=== PATIENT | female | born 1950 | race Caucasian/White ===

== ENCOUNTER 2018-05-08 18:22 | Emergency (ER) | payer MEDICARE, BC, SELFPAY ==
[2018-05-08 18:40] VITALS: BP 119/46; PULSE 96; RESP 18; TEMP 36.9; O2SAT 99
--- NOTE | 2018-05-08 18:54 | DI.CT_ITS ---
SYMPTOMS/DIAGNOSIS: FALL, STRUCK BACK OF HEAD CRANIAL CT: Noncontrast cranial CT was performed. There is mild generalized cerebral atrophy. There is no evidence of acute intracranial hemorrhage, mass effect or midline shift. The orbital and temporal bone structures appear intact. Visualized paranasal sinuses are clear. CONCLUSION: No evidence of acute intracranial process.
--- NOTE | 2018-05-08 18:54 | DI.RAD_ITS ---
SYMPTOMS/DIAGNOSIS: FALL ONTO OUTSTRETCHED HAND LEFT HIP AND PELVIS: Three views were obtained. There is a total hip joint replacement in position on the left. The components appear well seated. No acute fracture is seen. RIGHT WRIST: Three views were obtained. Carpal alignment appears within normal limits. No fracture identified. Mild degenerative changes noted.
--- NOTE | 2018-05-08 19:08 | W.ED.GENAD ---
Discharge Plan Disposition Patient Disposition: HOME Condition: Fair Discharge Details Chief Complaint: Trauma Clinical Impression: Contusion of right wrist, Closed fracture of right distal radius, Contusion of hip, left, Head injury Reason For Visit: right arm, left hip pain Primary Care Provider: Henna Young ED Provider: Natasha Worthy Home Meds and New Rx's Prescriptions: Continued venlafaxine 50 mg tablet 50 mg PO DAILY Qty: 30 RF: 1 zolpidem [Ambien] 5 mg tablet 5 mg PO daily prn Qty: 90 RF: 3 estradiol [Estrace] 42.5 GM cream 1 g VG DAILY RF: 0 cholecalciferol (vitamin D3) 1,000 UNIT tablet 1,000 unit PO DAILY RF: 0 vitamin B complex 1 EACH capsule 1 ea PO DAILY RF: 0 valacyclovir 500 MG tablet 500 mg PO DAILY RF: 0 calcium carbonate-vitamin D3 1 EACH tablet 1 ea PO DAILY RF: 0 mometasone 45 GM cream 45 gm Topical PRN RF: 0 pantoprazole [Protonix] 20 MG tablet,delayed release (DR/EC) 20 mg PO DAILY Qty: 90 RF: 0 raloxifene [Evista] 60 mg tablet 60 mg PO DAILY Qty: 90 RF: 3 citalopram 20 mg tablet 20 mg PO DAILY Qty: 90 RF: 3 Discharge Instructions Instructions: Wrist Fracture in Adults (ED), Head Injury (ED), Contusion in Adults (ED) Additional Instructions: Concern for possible distal radial fracture. Keep splint on until evaluated by orthopedics. Encourage rest, ice, elevation. Tylenol as needed for discomfort. Please call orthopedics Tuesday to schedule follow-up appointment, numbers listed below. Regard to the left hip, gentle stretching and frequent ambulation. Heat or ice to this affected area If you develop increased pain, fevers or chills, confusion, visual change, nausea/vomiting or other new/worsening symptoms please seek care urgently once again. Referrals: Henna Young NP [Primary Care Provider] - Caden Martinez MD [ [facility] STAFF PHYSICIAN] - ([phone]) Discharge Data Discharge Date/Time-TO BE ENTERED AT DEPARTURE: 05/08/18 21:59 Medical Decision Making Patient is a 67 year old RHD female, accompanied by son, with c/c of right wrist pain, left hip pain. States that she slipped on the ice and fell backward, first striking her head. Denies LOC. Denies LUX currently. No visual changes. No N/V. No confusion. Patient is not anticoagulated. No neck or back pain. Pain is primarily over the radial side of the right wrist and posterior aspect of the left hip. Patient is s/p left CASS. She has swelling to dorsal side of right wrist, limited ROM. Minimal pain over posterior left hip. No pelvic instability, no shortening or rotational deformity. Full ROM. Remaining exam without abnormality. Will obtain XR of right wrist, left hip. Will obtain CT of head given patients age and mechanism. Imaging reviewed by radiologist: Head CT FINDINGS: Brain: No intracranial hemorrhage. No mass or midline shift. No extra-axial collections. Normal funk-white differentiation. No cerebral edema. Ventricles: Asymmetry of the lateral ventricles, RIGHT slightly larger than the LEFT region of the frontal horn likely due to normal variation. No hydrocephalus. Bones/joints: No acute fracture. Sinuses: The visualized paranasal sinuses are well-aerated. There are no air fluid levels to suggest acute sinusitis. Mastoid air cells: The mastoid air cells are normally aerated as visualized. Orbits: Orbits unremarkable as visualized. Soft tissues: Soft tissues unremarkable. Impression: No acute intracranial findings. XR wrist: FINDINGS: Bones/joints: On the AP and oblique views there is no evidence of fracture. On the lateral view there is a questionable focal defect/step-off in the posterior cortex of the distal radial metaphysis. Probably is within normal limits. The possibility of a nondisplaced fracture is not excluded. There is no significant overlying soft tissue swelling. There is degenerative change involving the first carpometacarpal joint. Degenerative change of the first carpometacarpal joint. Soft tissues: See Bones/joints Finding. IMPRESSION:Focal defect/step-off in the posterior cortex distal radial metaphysis on the lateral view without evidence of fracture on other views or overlying soft tissue swelling. An acute fracture is not excluded but unlikely. Please correlate with the site of the patient's pain. If clinically indicated a CT scan of the wrist could be performed. This does correlate clinically with area of discomfort. At this point, will treat with brace, especially given the patients level of discomfort, and will have her f/u with orthopedics for reevaluation. She will call Tuesday to schedule follow up appointmnet. FINDINGS: Bones/joints: Status post LEFT interval total hip arthroplasty. No hardware complication. No acute fracture. Degenerative changes of the lumbar spine. Soft tissues: Soft tissues unremarkable. Gastrointestinal tract: Fecal material throughout the colon. No bowel obstruction. IMPRESSION: 1. Status post interval LEFT total hip arthroplasty. 2. No acute fracture. 3. No hardware complication. Discussed findings above. Will treat with brace as above and have her f/u with orthopedics. Encouraged rest, ice, elevation. Tylenol as needed for discomfort. Advised on new/worsening symptoms and when to seek care urgently once again. She will f/u with orthopedics as above, placed on fx list. All of her questions and concerns were addressed, she is in agreement wiht this plan. HPI General Mode of arrival: ambulatory. Date/Time Provider Initiated Documentation: 05/08/18 18:42. Limitations to Documentation: no limitations. Information obtained by: patient and family. History of Present Illness 67 year old F presents to the emergency department with the chief complaint of right wrist, left hip pain, described as moderate, Quality is described as aching, and is localized to the head, left, right, upper extremity and lower extremity. Patient reports no radiation. Patient started experiencing this minute(s) and it has been constant. Immobilization improves symptom(s), Movement worsens symptoms . Patient notes headaches; denies chest pain, cough, diaphoresis, fever/chills, nausea/vomiting, rash, seizure, shortness of breath, syncope and weakness. Patient did receive the following treatments prior to arrival, none Related Data Home Medications Medication Instructions Recorded Confirmed cholecalciferol (vitamin D3) 1,000 unit PO DAILY 12/12/12 05/08/18 estradiol [Estrace] 1 g VG DAILY 12/12/12 05/08/18 vitamin B complex 1 ea PO DAILY 05/15/14 05/08/18 valacyclovir 500 mg PO DAILY tab-cap 03/26/15 02/12/18 calcium carbonate-vitamin D3 1 ea PO DAILY 04/12/16 05/08/18 mometasone 45 gm TOPICAL PRN script 09/27/16 05/08/18 pantoprazole [Protonix] 20 mg PO DAILY #90 tab-cap 10/05/17 05/08/18 venlafaxine 50 mg tablet 50 mg PO DAILY #30 tab 02/06/18 05/08/18 zolpidem 5 mg tablet 5 mg PO daily prn #90 tab 02/06/18 05/08/18 raloxifene 60 mg tablet 60 mg PO DAILY #90 tab-cap 03/08/18 05/08/18 citalopram 20 mg PO DAILY #90 tab-cap 04/03/18 05/08/18 Previous Rx's Medication Instructions Recorded pantoprazole [Protonix] 20 mg PO DAILY #90 tab-cap 10/05/17 venlafaxine 50 mg tablet 50 mg PO DAILY #30 tab 02/06/18 zolpidem 5 mg tablet 5 mg PO daily prn #90 tab 02/06/18 raloxifene 60 mg tablet 60 mg PO DAILY #90 tab-cap 03/08/18 citalopram 20 mg PO DAILY #90 tab-cap 04/03/18 Allergies Allergy/AdvReac Type Severity Reaction Status Date / Time morphine Allergy Severe HIVES, Unverified 05/08/18 19:22 ITCHY RASH red dye Allergy Severe Anaphylaxsi Unverified 05/08/18 19:22 s latex Allergy Intermediate ITCHING Unverified 05/08/18 19:22 metaxalone Allergy Intermediate RASH ALL Unverified 05/08/18 19:22 OVER BODY duloxetine Allergy Mild Unverified 05/08/18 19:22 ciprofloxacin Allergy Unknown Unverified 05/08/18 19:22 clarithromycin Allergy Unknown Unverified 05/08/18 19:22 diphenhydramine Allergy Unknown Unverified 05/08/18 19:22 Penicillins Allergy Unknown Unverified 05/08/18 19:22 Sulfa (Sulfonamide Allergy Unknown Unverified 05/08/18 19:22 Antibiotics) cephalexin Allergy ITCHING Unverified 05/08/18 19:22 hydrocodone AdvReac Severe Unverified 05/08/18 19:22 erythromycin base AdvReac Intermediate NAUSEA/VOMI Unverified 05/08/18 19:22 TING Quinolones AdvReac Intermediate FLU LIKE Unverified 05/08/18 19:22 SYMPTOMS trazodone AdvReac Intermediate FACIAL Unverified 05/08/18 19:22 FLUSHING ibuprofen AdvReac Unknown Unverified 05/08/18 19:22 oxycodone AdvReac Unknown Unverified 05/08/18 19:22 General Stated Complaint: Trauma EVARISTO: 3 Review of Systems Constitutional Reports as per HPI, Denies chills, Denies fever(s), Denies headache(s) and Denies weakness ENT Denies headache(s) and Denies neck pain Cardiovascular Reports as per HPI Respiratory Reports as per HPI and Denies cough Gastrointestinal Denies abdominal pain, Denies change in bowel habits, Denies nausea and Denies vomiting Musculoskeletal Reports as per HPI, Denies neck pain, Denies numbness, Denies radiating pain into limb and Denies tingling Integumentary/Breasts Reports as per HPI, Denies rash and Denies wounds Neurologic Denies headache(s), Denies numbness, Denies tingling and Denies weakness [facility] Medical History History of malignant neoplasm of female breast Neuropathy Tubular adenoma of colon Surgical History BREAST RECONSTRUCTION (~2009) Breast, Mastectomy Bilateral (~2005) CERVICAL FUSION IMPLANTS Oophrectomy, Both (~2006) Rotator Cuff Repair Family History Mother Depression Mental disorder Neoplasm Father Stroke Sister Neoplasm Brother No problems noted. Grandfather No problems noted. Grandfather No problems noted. Grandmother Diabetes Grandmother No problems noted. 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 pets and animals: No Smoking/Tobacco Use Status: Never alcohol intake: never substance use type: marijuana jagdeep/congregational: Bahai Exam Const General: cooperative, healthy appearing, comfortable, no acute distress, well developed and well groomed Nutritional Appearance: average body habitus and well nourished Orientation: alert and awake [facility] Head: normal to inspection, no palpable skull fracture, normocephalic, atraumatic, no abrasions, no Bruno's sign, no contusions, no hematomas and no lacerations Ears: hearing grossly normal bilaterally and external ears normal General nose exam: external nose normal Face and sinus: normal facial exam and face symmetric Mouth: oral mucosae normal Neck Neck: normal visual inspection, full ROM, no lymphadenopathy, no meningeal signs, trachea midline and supple Chest Chest: normal inspection of the chest Resp Effort & Inspection: normal respiratory effort, able to speak in complete sentences and no respiratory distress Auscultation: clear to auscultation bilaterally Cardio Rate: regular rate Rhythm: regular rhythm Heart Sounds: S1 normal and S2 normal GI Inspection: normal to inspection Palpation: soft, no hepatosplenomegaly, not firm, no guarding and nontender Auscultation: normal bowel sounds Back/Spine/Pelvis Back: no CVA tenderness Cervical Spine: normal cervical lordosis and cervical ROM normal Thoracic/Lumbar Spine: thoracic and lumbar spine normal to inspection, No paraspinal tenderness, No thoracic spinal tenderness and No lumbar spinal tenderness Pelvis: no pain with anterior-posterior compression and no pain with lateral compression Skin General skin exam: no rashes or lesions noted Lesions: no lesions Rashes: no rashes Trauma: no lacerations or abrasions Neuro General: alert and awake Cognition: normal cognition Speech: speech normal Gait: normal gait Motor: muscle tone normal throughout Sensory Exam: no sensory deficits noted Extrem Right upper extremity: normal capillary refill, no joint enlargement, elbow/forearm Details: normal to inspection and normal ROM; no tenderness and no swelling and wrist (pain along radial side, dorsal swelling noted) Details: tenderness Location: of the distal radius, swelling Location: of the dorsal wrist and normal ROM; inspection abnormal, no unusual warmth, no abrasions, no lacerations, no ecchymosis, no crepitus and no deformity; abnormal to inspection, ROM limited (limited ROM of right wrist) and no edema Left lower extremity: full ROM, normal capillary refill, no joint enlargement and hip/thigh (2+ distal pulses) Details: normal to inspection, tenderness (well healed incision) Location: of the hip Location: posteriorly and normal ROM; inspection normal, no swelling, no abrasions, no lacerations, no ecchymosis, no crepitus, no deformity and no unusual warmth; no cyanosis and no edema Psych Appearance: grossly normal and well kempt Mental Status: mental status grossly normal Speech and Movement: speech and movement normal Course Vital Signs Temperature 36.9 C 05/08/18 18:40 Pulse 96 H 05/08/18 18:40 Respiratory Rate 18 05/08/18 18:40 Blood Pressure 119/46 L 05/08/18 18:40 Pulse Oximetry 99 05/08/18 18:40 Temperature 36.9 C 05/08/18 18:40 Temperature Source Temporal Artery Scan 05/08/18 18:40 Pulse 96 H 05/08/18 18:40 Respiratory Rate 18 05/08/18 18:40 Blood Pressure 119/46 L 05/08/18 18:40 Pulse Oximetry 99 05/08/18 18:40 Oxygen Delivery Method Room Air 05/08/18 18:40 Oxygen Flow Rate 0 05/08/18 18:40
[2018-05-08] MEDS: Acetaminophen 325 MG TAB (19:21)
--- NOTE | 2018-05-08 20:40 | DI.VRAD_ITS ---
EXAM: CT Head Without Contrast EXAM DATE/TIME: 05/08/2018 6:56 PM CLINICAL HISTORY: 67 years old, female; Pain; Other: Fall, hit head TECHNIQUE: Axial computed tomography images of the head/brain without contrast. All CT scans at this facility use at least one of these dose optimization techniques: automated exposure control; mA and/or kV adjustment per patient size (includes targeted exams where dose is matched to clinical indication); or iterative reconstruction. Coronal and sagittal reformatted images were created and reviewed. COMPARISON: No relevant prior studies available. FINDINGS: Brain: No intracranial hemorrhage. No mass or midline shift. No extra-axial collections. Normal funk-white differentiation. No cerebral edema. Ventricles: Asymmetry of the lateral ventricles, RIGHT slightly larger than the LEFT region of the frontal horn likely due to normal variation. No hydrocephalus. Bones/joints: No acute fracture. Sinuses: The visualized paranasal sinuses are well-aerated. There are no air fluid levels to suggest acute sinusitis. Mastoid air cells: The mastoid air cells are normally aerated as visualized. Orbits: Orbits unremarkable as visualized. Soft tissues: Soft tissues unremarkable. IMPRESSION: No acute intracranial findings. Dictated and Authenticated by: Charlotte Artis MD. Ordering:DEMIAN Kaur MD
--- NOTE | 2018-05-08 20:55 | DI.VRAD_ITS ---
EXAM: XR Left Hip with Pelvis when Performed, 2 or 3 Views EXAM DATE/TIME: 05/08/2018 6:56 PM CLINICAL HISTORY: 67 years old, female; Pain; Hip pain; Left hip; Patient HX: Pain after fall on ice TECHNIQUE: XR Left hip with pelvis when performed, 2 or 3 views COMPARISON: CR PELVIS AP 11/29/2011 9:00 AM FINDINGS: Bones/joints: Status post LEFT interval total hip arthroplasty. No hardware complication. No acute fracture. Degenerative changes of the lumbar spine. Soft tissues: Soft tissues unremarkable. Gastrointestinal tract: Fecal material throughout the colon. No bowel obstruction. IMPRESSION: 1. Status post interval LEFT total hip arthroplasty. 2. No acute fracture. 3. No hardware complication. Dictated and Authenticated by: Charlotte Artis MD. Ordering:DEIMAN Kaur MD
--- NOTE | 2018-05-08 21:12 | DI.VRAD_ITS ---
Addendum created by Charlotte Artis MD on 05/08/2018 9:16:12 PM EST Findings were discussed by me with SLIME ARECHIGA at 05/08/2018 9:16 PM EST. The findings were acknowledged and understood. Initial report created on 05/08/2018 9:12:17 PM EST EXAM: XR Right Wrist Complete, 3 or more Views EXAM DATE/TIME: 05/08/2018 6:56 PM CLINICAL HISTORY: 67 years old, female; Pain; Wrist; Right; Patient HX: Foosh TECHNIQUE: XR Right wrist 3 or more views. COMPARISON: CR RIGHT HAND COMPLETE 05/20/2017 10:31 AM FINDINGS: Bones/joints: On the AP and oblique views there is no evidence of fracture. On the lateral view there is a questionable focal defect/step-off in the posterior cortex of the distal radial metaphysis. Probably is within normal limits. The possibility of a nondisplaced fracture is not excluded. There is no significant overlying soft tissue swelling. There is degenerative change involving the first carpometacarpal joint. Degenerative change of the first carpometacarpal joint. Soft tissues: See Bones/joints Finding. IMPRESSION: Focal defect/step-off in the posterior cortex distal radial metaphysis on the lateral view without evidence of fracture on other views or overlying soft tissue swelling. An acute fracture is not excluded but unlikely. Please correlate with the site of the patient's pain. If clinically indicated a CT scan of the wrist could be performed. Dictated and Authenticated by: Charlotte Artis MD. Ordering:DEMIAN Kaur MD
== END 2018-05-08 21:59 | disposition home or self-care (01) ==
PROVIDERS: Emergency Provider Physician Assistant
DX: S70.02XA Contusion of left hip, initial encounter (principal); S09.90XA Unspecified injury of head, initial encounter; S52.501A Unspecified fracture of the lower end of right radius, initial encounter for closed fracture; W00.0XXA Fall on same level due to ice and snow, initial encounter; Z96.641 Presence of right artificial hip joint
CPT/HCPCS: 25600; 99284; 70450; 73110; 73502

== ENCOUNTER 2018-05-30 09:01 | Outpatient (CLI) | payer MEDICARE, BC, SELFPAY ==
--- NOTE | 2018-05-30 11:26 | DI.RAD_ITS ---
SYMPTOMS/DIAGNOSIS: PAIN RIGHT WRIST: Comparison is made with [id number]. There has been no change in the alignment of the distal radial fracture. There is some increased sclerosis around the fracture site. No new abnormalities are seen.
== END 2018-05-30 09:21 ==
PROVIDERS: Visit Provider Orthopaedic Surgery
DX: M25.531 Pain in right wrist (principal); S52.501D Unspecified fracture of the lower end of right radius, subsequent encounter for closed fracture with routine healing
CPT/HCPCS: 99214; 73110; L3908

== ENCOUNTER 2018-05-30 11:25 | Outpatient (CLI) | payer MEDICARE, BC, SELFPAY | END 2018-05-30 11:45 | PROVIDERS: Visit Provider Orthopaedic Surgery | DX: S52.501D Unspecified fracture of the lower end of right radius, subsequent encounter for closed fracture with routine healing; W01.0XXD Fall on same level from slipping, tripping and stumbling without subsequent striking against object, subsequent encounter; M25.531 Pain in right wrist | CPT/HCPCS: 99214; L3908 ==

== ENCOUNTER 2018-10-26 14:06 | Outpatient (CLI) | payer MEDICARE, BC, SELFPAY ==
--- NOTE | 2018-10-26 14:56 | DI.RAD_ITS ---
SYMPTOMS/DIAGNOSIS: INCREASING LEFT KNEE DISCOMFORT; PREVIOUS RIGHT WRIST FX, ? REINJURY, S69.91XA LEFT KNEE: Three views. The bones are normally mineralized. There is very slight narrowing of the medial tibiofemoral joint space compartment. The joint space is otherwise entirely unremarkable. There is no evidence of a joint effusion. SUMMARY: Minimal DJD as demonstrated. RIGHT WRIST: There is no evidence of an acute fracture or dislocation.
== END 2018-10-26 14:26 ==
DX: S69.91XA Unspecified injury of right wrist, hand and finger(s), initial encounter (principal); M25.562 Pain in left knee; M17.12 Unilateral primary osteoarthritis, left knee
CPT/HCPCS: 73562; 73110

== ENCOUNTER 2018-10-27 02:38 | Outpatient (CLI) | payer MEDICARE, BC, SELFPAY ==
[2018-10-27 12:07] LABS: ALT 24 U/L (12-78); AST 25 U/L (15-37); Albumin 3.8 g/dL (3.4-5.0); Alkaline Phosphatase 66 U/L (46-116); Anion Gap 7.5 mmol/L (3-11); BUN 13 mg/dL (7-18); Bilirubin, Total 0.5 mg/dL (0.2-1.0); CO2 27.5 mmol/L (21.0-32.0); CREATININE 0.78 mg/dL (0.55-1.02); Calcium 8.9 mg/dL (8.5-10.1); Calculated LDL 123; Chloride 105 mmol/L (98-107); Cholesterol 193 mg/dL (50-200); Glucose 88 mg/dL (70-100); HDL Cholesterol 58 mg/dL (40-60); Potassium 4.2 mmol/L (3.5-5.1); Sodium 140 mmol/L (136-145); Total Protein 6.8 g/dL (6.4-8.2); Triglyceride 64 mg/dL (30-150)
== END 2018-10-27 02:58 ==
DX: G62.9 Polyneuropathy, unspecified (principal); K21.9 Gastro-esophageal reflux disease without esophagitis; M81.0 Age-related osteoporosis without current pathological fracture; I10 Essential (primary) hypertension
CPT/HCPCS: 36415; 80053; 80061; 83721

== ENCOUNTER 2019-11-23 08:21 | Outpatient (CLI) | payer MEDICARE, BC, SELFPAY ==
[2019-11-29 20:35] LABS: SARS-CoV-2 RNA Undetected (Undetected); SARS-CoV-2 Specimen Source Nasopharynx
== END 2019-11-23 08:41 ==
DX: Z11.59 Encounter for screening for other viral diseases (principal)
CPT/HCPCS: U0003

== ENCOUNTER 2019-12-18 01:42 | Outpatient (CLI) | payer MEDICARE, BC, SELFPAY ==
[2019-12-18 14:45] LABS: ALT 22 U/L (14-59); AST 19 U/L (15-37); Albumin 3.8 g/dL (3.4-5.0); Alkaline Phosphatase 62 U/L (46-116); Anion Gap 5.1 mmol/L (3-11); BUN 14 mg/dL (7-18); Bilirubin, Total 0.3 mg/dL (0.2-1.0); CO2 29.9 mmol/L (21.0-32.0); CREATININE 0.75 mg/dL (0.55-1.02); Calcium 9.1 mg/dL (8.5-10.1); Chloride 107 mmol/L (98-107); Glucose 97 mg/dL (74-106); Potassium 4.1 mmol/L (3.5-5.1); Sodium 142 mmol/L (136-145); Total Protein 6.6 g/dL (6.4-8.2)
[2019-12-19 12:20] LABS: Syphilis Serology (RPR) Negative (Negative)
== END 2019-12-18 02:02 ==
PROVIDERS: Nurse Practitioner Family
DX: R41.3 Other amnesia (principal); G62.9 Polyneuropathy, unspecified; Z00.00 Encounter for general adult medical examination without abnormal findings; G47.00 Insomnia, unspecified
CPT/HCPCS: 36415; 80053; 86592

== ENCOUNTER 2019-12-19 03:20 | Outpatient (CLI) | payer MEDICARE, BC, SELFPAY ==
--- NOTE | 2019-12-19 09:00 | DI.DEXA_ITS ---
EXAM: XR DEXA BONE DENSITY W/WO TOM CLINICAL HISTORY: evaluate medication progress,osteoporosis, [id number] TECHNIQUE: COMPARISON: CR XR hip LT complete AP pelvis from 05/08/2018 FINDINGS: DEXA scan was performed according to the usual protocol. Please see the accompanying data sheets. Findings for right hip scanning are T-score -3.2 with right femoral neck T-score -3.0. Prior examina tion of May 2017 showed right hip T-score -2.9. Findings for lumbar spine scanning are T-score -1.8. This is unchanged from prior study of May 2017. Lateral vertebral scanogram shows no evidence of a vertebral compression fracture. IMPRESSION: Findings consistent with osteoporosis according to the WHO criteria.
== END 2019-12-19 03:40 ==
DX: M81.0 Age-related osteoporosis without current pathological fracture (principal)
CPT/HCPCS: 77080